=== PATIENT | male | born 1945 | race Hispanic/Latino ===

== ENCOUNTER → 2022-11-23 | Outpatient (CLI) | payer OTHER ==
[~2022-11-23] MED LIST: ASPI-1197 PO; CARB-38 PO; CITA10TA89 PO; DIGO125T71 PO; FURO20TA4 PO; HYDR-2132 PO; INSREG SQ; LISI2.5T13 PO; NITR0.4T SL; NPH,100V11 SQ; POTA-202 PO; SIMV-43 PO; SPIR25TA6 PO
== END | disposition home or self-care (01) ==
LOC: LAB 11:52
PROVIDERS: ATTEND Internal Medicine Cardiovascular Disease
DX: I42.0 Dilated cardiomyopathy (principal)
CPT/HCPCS: 36415; 80162